=== PATIENT | female | born 1935 | race Caucasian/White ===

== ENCOUNTER 2016-04-12 08:28 | Emergency (ER) | payer MEDICARE, OTHER ==
--- NOTE | 2016-04-12 12:39 | ER PHYSICIAN DOCUMENTATION ---
Physician Documentation [facility] Name:Radha Tan Age:81 yrs Sex:Female :1935 Arrival Date:04/12/2016 Time:08:28 Bed1 Private MD:Carin Rucker ED, Tom Disposition: 04/12 11:18 Chart complete. tl1 Disposition: 04/12/16 10:42 Discharged to Home/Self Care. Impression: UTI (Pyelonephritis). - Condition is Good. - Discharge Instructions: BLADDER INFECTION, Female (Adult), PYELONEPHRITIS, Female (Adult). - Prescriptions for Pyridium 200 mg Oral tablet - take 1 tablet by ORAL route 3 times per day As needed; 10 tablet. Keflex 500 mg Oral Capsule - take 1 capsule by ORAL route every 8 hours for 10 days; 30 capsule. - Medical Reconciliation form form. - Follow up: Carin Rucker MD; When: 2 - 3 days; Reason: Recheck today's complaints, Continuance of care. - Problem is new. - Symptoms have improved. HPI: 08:58 This 81 yrs old Female presents to ER via Private Vehicle with complaints of tl1 Back Pain. 08:58 The patient presents with pain that is acute. tl1 10:11 She has 2 prior episodes of kidney stones, the last about 20-25 years ago. Since September, she has had recurrent UTIs. On 03/31, she was treated with Macrobid for an e. coli UTI that was rao sensitive except for amoxicillin. She was well until 4 days ago when she developed recurrent urinary urgency, frequency and dysuria, and gradually worsening left flank pain/pressure, which is constant and bothersome, but not that painful.. Historical: - Allergies: SULFA (SULFONAMIDES); - Home Meds: 1. Synthroid Oral 2. Lisinopril Oral - PMHx: THYROID PROBLEM; HYPERTENSION; UTI; - PSHx: rotator cuff; - Tetanus: < 10 years. - Ebola Screening: : Patient negative for fever greater than or equal to 101.5 degrees Fahrenheit, and additional compatible Ebola Virus Disease symptoms. Patient denies exposure to infectious person. Patient denies travel to an Ebola-affected area in the 21 days before illness onset. No symptoms or risks identified at this time. . - Immunization history: Flu Vaccine < 1 year. - Social history: Smoking status: Patient states former smoker of tobacco. ROS: 09:00 Back: Positive for pain at rest. tl1 09:00 All other systems are negative. Exam: 09:00 Constitutional: This is a well developed, well nourished patient who is awake, alert, tl1 and in no acute distress. Head/Face: Normocephalic, atraumatic. 09:00 Eyes: Pupils equal round and reactive to light, extra-ocular motions intact. Lids and tl1 lashes normal. Conjunctiva and sclera are non-icteric and not injected. Periorbital areas with no swelling, redness, or edema. 09:00 Neck: ROM/movement: is normal. 09:00 Cardiovascular: Rate: normal, Rhythm: regular, Heart sounds: normal, Edema: is not appreciated, JVD: is not appreciated. 09:00 Respiratory: Respirations: normal, Breath sounds: no acute changes. 09:00 Abdomen/GI: Inspection: abdomen appears normal, Bowel sounds: diminished, Palpation: soft, mild abdominal tenderness, in the suprapubic area, right lower quadrant and left lower quadrant. 09:00 Back: pain, is absent, ROM is normal, painless, CVA tenderness, is absent, vertebral tenderness, is not appreciated, muscle spasm, is not present. 09:00 Musculoskeletal/extremity: Exam is negative for acute changes. 09:00 Skin: Exam negative for 09:00 Neuro: Orientation: is normal, Mentation: is normal, Memory: is normal, Cranial nerves: grossly normal, Motor: moves all fours, Gait: is steady. Vital Signs: 08:47 BP 141 / 77; Pulse 56; Resp 16; Temp 97.5(O); Pulse Ox 96% on R/A; Weight 54.88 kg (R); tg Height 5 ft. 4 in. (162.56 cm) (R); Pain 3/10; 10:11 BP 149 / 67; Pulse 56; Resp 14; Pulse Ox 96% on R/A; Pain 2/10; tg 08:47 Body Mass Index 20.77 (54.88 kg, 162.56 cm) tg MDM: 08:57 Patient medically screened. tl1 10:00 Data reviewed: vital signs, nurses notes, old medical records, lab test result(s), tl1 urinalysis, bacteruria, hematuria, pyuria, and as a result, I will. Counseling: I had a detailed discussion with the patient and/or guardian regarding: the historical points, exam findings, and any diagnostic results supporting the discharge/admit diagnosis, lab results, radiology results, the need for outpatient follow up, to return to the emergency department if symptoms worsen or persist or if there are any questions or concerns that arise at home. Response to treatment: There is no appreciated change of the patient's symptoms at this time, and as a result, I will discharge patient. Dispensed Medications: No medications were administered Signatures: Jeremias Wolfe RN RN tg Nestor Joiner MD MD tl1
--- NOTE | 2016-04-12 12:39 | ER NURSING DOCUMENTATION ---
Nurse's Notes [facility] Name:Radha Tan Age:81 yrs Sex:Female :1935 Arrival Date:04/12/2016 Time:08:28 Bed1 Private MD:Carin Rucker Diagnosis:UTI (Pyelonephritis) Presentation: 04/12 08:29 Transition of care: patient was not received from another setting of care. tg 08:29 Acuity: HAYDER 4 tg 08:29 Method Of Arrival: Private Vehicle tg 08:39 Presenting complaint: Patient states: Pain in mid left back for past 5 days along with tg urinary freq. Hx of UTI for past several months, several courses of ABX. recent weight loss. No fever chills or N/V. 09:55 Acuity: HAYDER 3 tg Triage Assessment: 08:40 General: Appears in no apparent distress, well groomed, Behavior is cooperative, tg pleasant. Pain: Complains of pain in left mid back. Neuro: Level of Consciousness is awake, alert. GI: Denies nausea, pain, vomiting. 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 Derm: Skin is pink, warm & dry. Musculoskeletal: Range of motion intact in all extremities. Historical: - Allergies: SULFA (SULFONAMIDES); - Home Meds: 1. Synthroid Oral 2. Lisinopril Oral - PMHx: THYROID PROBLEM; HYPERTENSION; UTI; - PSHx: rotator cuff; - Tetanus: < 10 years. - Ebola Screening: : Patient negative for fever greater than or equal to 101.5 degrees Fahrenheit, and additional compatible Ebola Virus Disease symptoms. Patient denies exposure to infectious person. Patient denies travel to an Ebola-affected area in the 21 days before illness onset. No symptoms or risks identified at this time. . - Immunization history: Flu Vaccine < 1 year. - Social history: Smoking status: Patient states former smoker of tobacco. Screenin:42 Infectious Disease Risk Unable to Obtain. Abuse screen: Denies threats or abuse. Denies tg injuries from another. Nutritional screening: No deficits noted. Assessment: 10:11 See Triage Assessment done by same RN. tg Vital Signs: 08:47 BP 141 / 77; Pulse 56; Resp 16; Temp 97.5(O); Pulse Ox 96% on R/A; Weight 54.88 kg (R); tg Height 5 ft. 4 in. (162.56 cm) (R); Pain 3/10; 10:11 BP 149 / 67; Pulse 56; Resp 14; Pulse Ox 96% on R/A; Pain 2/10; tg 08:47 Body Mass Index 20.77 (54.88 kg, 162.56 cm) tg ED Course: 08:29 Patient arrived in ED. ama 08:29 Carin Rucker MD is Private Physician. ama 08:30 Triage completed. tg 08:39 Jeremias Wolfe, RN is Primary Nurse. tg 08:42 Notified ED Physician of patient's arrival and chief complaint. Dr. Joiner notified. Arm tg band placed on. 08:42 Valuables Remains with patient. tg 08:57 Nestor Joiner MD is Attending Physician. tl1 09:41 Inserted peripheral IV: 20 gauge in left forearm. tg 10:42 Carin Rucker MD is Referral Physician. tl1 10:42 Discontinued lock intact, bleeding controlled, pressure dressing applied, No sc1 redness/swelling at site. Administered Medications: No medications were administered Outcome: 10:42 Discharge ordered by . tl1 10:43 Discharged to home ambulatory, with friend. tg 10:43 Condition: stable 10:43 Instructed on discharge instructions, follow up and referral plans. 10:43 IV D/Randell 10:52 Patient left the ED. tg 0212 11:16 Discharge F/U Call: Unable to reach: no answer nf Signatures: Jeremias Wolfe RN RN tg Katie Killian RN RN ky1 Deonna Thomson RN RN nf Julian Mcdonald, Reg Reg Nestor Armando MD MD tl1
[2016-04-12 13:11] LABS: A/G RATIO 1.3; ALKALINE PHOSPHATASE 52 U/L (38-126); ALT 37 U/L (9-52); AST 21 U/L (14-36); BILIRUBIN, TOTAL 0.7 mg/dL (0.2-1.3); BLOOD UREA NITROGEN 19 mg/dL (7-17); CALCIUM 9.3 mg/dL (8.4-10.2); CHLORIDE 106 mmol/L (98-107); CREATININE 0.8 mg/dL (0.5-1.0); EST GLOMERULAR FILTRATION RATE > 60 mL/min; GLUCOSE 94 mg/dL (70-100); SODIUM 142 mmol/L (137-145); TOTAL PROTEIN 7.1 g/dL (6.3-8.2)
[2016-04-12 13:12] LABS: BASOPHILS 0.6 % (0.0-2.0); EOSINOPHILS 0.6 % (0.0-6.0); HEMATOCRIT 42.9 % (36.0-48.0); HEMOGLOBIN 14.3 g/dL (12.0-16.0); LYMPHOCYTES 16.1 % (20.0-40.0); LYMPHOCYTES# 1.2 X 10^3uL (0.8-3.8); MEAN CELL VOLUME 86.2 fL (84.0-102.0); MEAN CORPUS. HGB CONCENTRATION 33.4 g/dL (32.0-36.0); MEAN CORPUSCULAR HEMOGLOBIN 28.8 pg (29.0-35.0); MEAN PLATELET VOLUME 7.9 fL (7.4-10.4); MONOCYTES 4.5 % (2.0-10.0); MONOCYTES# 0.3 X 10^3uL (0.2-1.0); NEUTROPHILS 78.2 % (54.0-75.0); NEUTROPHILS# 5.7 X 10^3uL (2.6-6.7); PLATELET COUNT 236 X 10^3uL (130-440); RED BLOOD COUNT 4.97 X 10^6uL (4.20-6.10); RED CELL DISTRIBUTION WIDTH 13.3 % (11.5-14.5); WHITE BLOOD COUNT 7.2 X 10^3uL (3.9-10.7)
[2016-04-12 13:19] LABS: URINE APPEARANCE SLIGHTLY CLOUDY; URINE BILIRUBIN NEGATIVE (NEGATIVE); URINE BLOOD TRACE (NEGATIVE); URINE COLOR YELLOW; URINE GLUCOSE NORMAL (NEGATIVE); URINE KETONE NEGATIVE (NEGATIVE); URINE LEUKOCYTE ESTERASE 500 WBC/uL (3+) (NEGATIVE); URINE NITRITE NEGATIVE (NEGATIVE); URINE PROTEIN 30mg/dL (1+) (NEG - TRACE); URINE SPECIFIC GRAVITY 1.015 (0.001-1.035); URINE UROBILINOGEN 0.2mg/dL (Normal) (NEG-1mg/dL)
[2016-04-12 13:20] LABS: URINE SQUAMOUS EPITHELIAL CELL 0-5/hpf (<= 15/hpf)
[2016-04-12 13:21] LABS: URINE AMORPHOUS SEDIMENT UP TO 25%/lpf (Up to 25%); URINE MUCUS UP TO 25%/lpf (Up to 25%); URINE RBC 0-5/hpf (0-5/hpf)
--- NOTE | 2016-04-14 09:56 | CT REPORT ---
Radiology report CT abdomen pelvis without contrast Dated April 12, 2016 HISTORY: Left-sided back pain, history of urinary tract infection PROCEDURE: Noncontrast imaging to the abdomen and pelvis was performed. Findings the lung bases are clear. The heart size is moderately enlarged. There is significant amount of calcification in the region of the mitral valve. Several hypodensities are noted within the liver, suggesting cysts. The spleen, pancreas, gallbladder, and adrenal glands appear normal given the lack of contrast. The left kidney is unremarkable. No perinephric fatty stranding or hydronephrosis. The right kidney shows 2 stones in the mid collecting system. The largest measures 10 x 6 mm. No ureteral stones. The bowel is less well evaluated without contrast. There is a moderate amount of stool throughout the colon. Numerous sigmoid diverticula are evident but no evidence for acute diverticulitis. The bladder is unremarkable. Calcifications within the uterus suggests fibroids. Adnexal regions are normal. There is minimal anterior subluxation of L4 on L5 with moderate to severe degenerative change at L5-S1. IMPRESSION: moderate amount of stool throughout the colon. Diverticulosis without acute diverticulitis. Numerous calcifications within the uterus suggesting fibroids. Nonobstructing kidney stones on the right. Unremarkable left kidney without perinephric fatty stranding, hydronephrosis, or perinephric abscess. Report discussed with Dr. Joiner. Final Electronic Signature: This report was electronically signed by Maikel Sanchez MD on 04/12/2016 10:21 AM. [email or web address] / JULES
== END 2016-04-12 10:52 | disposition home or self-care (01) ==
LOC: ER 08:28
DX: N39.0 Urinary tract infection, site not specified (principal); B96.20 Unspecified Escherichia coli [E. coli] as the cause of diseases classified elsewhere; Z87.440 Personal history of urinary (tract) infections; I10 Essential (primary) hypertension; Z79.899 Other long term (current) drug therapy
CPT/HCPCS: 74150; 80053; 81001; 85025; 87077; 87086; 87186; 99283